=== PATIENT | male | born 1980 | race Two or more races ===

== ENCOUNTER 2017-01-24 23:29 | Emergency (ER) | payer MEDICAID, OTHER | END 2017-01-25 05:47 | disposition left against medical advice (07) | LOC: ER 23:29 | DX: M25.571 Pain in right ankle and joints of right foot (principal); Z53.21 Procedure and treatment not carried out due to patient leaving prior to being seen by health care provider | CPT/HCPCS: 73610 ==

== ENCOUNTER 2018-11-20 15:58 | Emergency (ER) | payer MEDICAID ==
[~2018-11-20] VITALS: Ht 175.3 cm; Wt 136.1 kg
[2018-11-20 17:14] LABS: Basophils # (auto) 0 uL; Basophils % (auto) 0.7 % (0.0-2.0); Chloride 109 mmol/L (98-107); Eosinophils # (auto) 0.2 uL; Eosinophils % (auto) 3.2 % (0.0-7.0); Hematocrit 43.2 % (41.0-53.0); Hemoglobin 14.4 g/dL (13.5-17.5); Lymphocytes # (auto) 2.1 uL; Lymphocytes % (auto) 30.1 % (10.0-50.0); Mean Corpuscular Hemoglobin 29.6 pg (28.0-32.0); Mean Corpuscular Hgb Conc. 33.4 g/dL (32.0-36.0); Mean Corpuscular Volume 88.6 fL (80.0-100.0); Monocytes # (auto) 0.7 uL; Monocytes % (auto) 9.7 % (0.0-12.0); Neutrophils # (auto) 3.8 uL; Neutrophils % (auto) 56.3 % (37.0-80.0); Platelet Count (auto) 302 10^3/uL (140-450); Potassium 3.7 mmol/L (3.5-5.1); Red Blood Cells 4.88 10^6/uL (4.5-5.90); Red Cell Distribution Width 13.9 % (11.8-14.3); Sodium 143 mmol/L (136-145); White Blood Cell 6.8 10^3/uL (4.4-10.8)
[2018-11-20 17:15] LABS: Urine Bacteria NONE SEEN /hpf (None Seen); Urine Blood Negative /uL (Negative); Urine Mucus FEW (None Seen); Urine Specific Gravity 1.031 (1.001-1.035); Urine WBC 1 /hpf (0 - 3)
[2018-11-20 17:20] LABS: Alcohol, Urine < 3.0 mg/dL (0-5); Amphetamine Screen, Urine NEGATIVE (NEGATIVE); Barbiturate Scree,Urine NEGATIVE (NEGATIVE); Benzodiazephine Screen, Urine NEGATIVE (NEGATIVE); Cannabinoid Screen, Urine NEGATIVE (NEGATIVE); Cocaine Screen, Urine NEGATIVE (NEGATIVE); Opiate Scree,Urine NEGATIVE (NEGATIVE); Phencyclidine Screen, Urine NEGATIVE (NEGATIVE)
[2018-11-20 17:21] LABS: Salicylate < 1.7 mg/dL (2.8-20.0)
[2018-11-20 17:22] LABS: Albumin 3.3 g/dL (3.4-5.0); Anion Gap 8 (5-15); Blood Alcohol < 3.0 mg/dL (0-5); Blood Urea Nitrogen 12 mg/dL (7-18); Calcium 8.8 mg/dL (8.5-10.1); Carbon Dioxide 26 mmol/L (21-32); Glucose 86 mg/dL (74-106)
[2018-11-20 17:27] LABS: Alanine Aminotransferase 97 U/L (16-61); Alkaline Phosphatase 58 U/L (45-117); Aspartate Aminotransferase 57 U/L (15-37); BUN/Creatinine Ratio 18.8; Bilirubin, Total 0.2 mg/dL (0.2-1.0); GFR African American 179 mL/min; GFR Non-African American 148 mL/min; Total Protein 7.4 g/dL (6.4-8.2)
[2018-11-20 17:29] LABS: Acetaminophen < 2.0 ug/mL (10-30)
[2018-11-20 22:14] LABS: Albumin 3.3 g/dL (3.4-5.0); Calcium 8.6 mg/dL (8.5-10.1); Potassium 3.4 mmol/L (3.5-5.1)
[2018-11-20 22:19] LABS: Bilirubin, Total 0.3 mg/dL (0.2-1.0)
[2018-11-24 15:30] VITALS: BP 117/78
== END 2018-11-24 20:19 | disposition home or self-care (01) ==
LOC: ER 16:09
DX: F32.9 Major depressive disorder, single episode, unspecified (principal); R45.851 Suicidal ideations
CPT/HCPCS: 36415; 80053; 80307; 80320; 80329; 81001; 85025

== ENCOUNTER → 2019-07-10 | Emergency (ER) | payer MEDICAID ==
[~2019-07-10] VITALS: Ht 172.7 cm; Wt 74.8 kg
[2019-07-10 06:15] VITALS: BP 118/87
== END | disposition home or self-care (01) ==
LOC: ER 01:52
DX: L02.416 Cutaneous abscess of left lower limb (principal)

== ENCOUNTER 2021-02-28 03:43 | Emergency (ER) | payer MEDICAID ==
[~2021-02-28] VITALS: Ht 175.3 cm; Wt 81.6 kg
[2021-02-28 05:41] VITALS: BP 127/82
== END 2021-02-28 09:06 | disposition home or self-care (01) ==
LOC: ER 03:43
DX: S60.562A Insect bite (nonvenomous) of left hand, initial encounter (principal); L02.512 Cutaneous abscess of left hand; W57.XXXA Bitten or stung by nonvenomous insect and other nonvenomous arthropods, initial encounter; Y93.89 Activity, other specified; Y92.89 Other specified places as the place of occurrence of the external cause; Y99.8 Other external cause status
CPT/HCPCS: 82962

== ENCOUNTER 2021-03-01 00:34 | Emergency (ER) | payer MEDICAID ==
[~2021-03-01] VITALS: Ht 175.3 cm; Wt 77.1 kg
[2021-03-01 01:09] VITALS: BP 133/84
== END 2021-03-01 04:21 | disposition left against medical advice (07) ==
LOC: ER 00:38
DX: L02.512 Cutaneous abscess of left hand (principal); Z53.21 Procedure and treatment not carried out due to patient leaving prior to being seen by health care provider

== ENCOUNTER 2021-10-10 19:05 | Emergency (ER) | payer MEDICAID ==
[~2021-10-10] VITALS: Ht 170.2 cm; Wt 81.6 kg
[2021-10-10] MEDS ORDERED: LACTATED RINGER'S 1,000 ML IV ONE (19:45)
[2021-10-10] MEDS ORDERED: FAMOTIDINE (10MG/ML) 2ML VL IV ONE (19:45)
[2021-10-10] MEDS ORDERED: ONDANSETRON HCL 4 MG/2 ML VIAL IV ONE (19:45)
[2021-10-10] MEDS ORDERED: LIDOCAINE VISCOUS 2% 15ML UD PO ONE (19:45)
[2021-10-10] MEDS ORDERED: ALUM & MAG HYDROX-SIMETH LIQ(MAALOX) 30 ML PO ONE (19:45)
[2021-10-10 20:06] LABS: Basophils # (auto) 0 10 ^3/uL (0-0.2); Basophils % (auto) 0.4 % (0.0-2.0); Eosinophils # (auto) 0 10 ^3/uL (0-0.8); Eosinophils % (auto) 0.2 % (0.0-7.0); Hematocrit 42.9 % (41.0-53.0); Hemoglobin 14.3 g/dL (13.5-17.5); Lymphocytes # (auto) 0.8 10 ^3/uL (0.4-5.4); Lymphocytes % (auto) 12.6 % (10.0-50.0); Mean Corpuscular Hemoglobin 28.7 pg (28.0-32.0); Mean Corpuscular Hgb Conc. 33.2 g/dL (32.0-36.0); Mean Corpuscular Volume 86.5 fL (80.0-100.0); Monocytes # (auto) 0.7 10 ^3/uL (0-1.3); Monocytes % (auto) 10.6 % (0.0-12.0); Neutrophils % (auto) 76.2 % (37.0-80.0); Red Blood Cells 4.96 10^6/uL (4.5-5.90); Red Cell Distribution Width 13.7 % (11.8-14.3); White Blood Cell 6.5 10^3/uL (4.4-10.8)
[2021-10-10 20:20] LABS: BUN/Creatinine Ratio 20.8; Calcium 8.4 mg/dL (8.5-10.1); Magnesium 2.2 mg/dL (1.6-2.6); Potassium 3.1 mmol/L (3.5-5.1)
[2021-10-10 20:23] LABS: Bilirubin, Total 0.4 mg/dL (0.2-1.0); Total Protein 7.2 g/dL (6.4-8.2)
[2021-10-10] MEDS ORDERED: POTASSIUM EFFERVESENT TAB 25 MEQ PO ONE (21:15)
[2021-10-11 04:10] LABS: Urine Bacteria NONE SEEN /hpf (None Seen); Urine Blood Negative /uL (Negative); Urine Budding Yeast FEW /hpf (None Seen); Urine Mucus FEW (None Seen); Urine Specific Gravity 1.035 (1.001-1.035); Urine WBC 96 /hpf (0 - 3)
[2021-10-11 04:20] VITALS: BP 129/90
== END 2021-10-11 04:33 | disposition home or self-care (01) ==
LOC: EDBD 19:05 → ER 19:06
DX: K52.9 Noninfective gastroenteritis and colitis, unspecified (principal); A05.9 Bacterial foodborne intoxication, unspecified; F17.210 Nicotine dependence, cigarettes, uncomplicated; Z59.00 Homelessness unspecified
CPT/HCPCS: 36415; 80053; 81001; 82962; 83605; 83690; 83735; 85025; 96361; 96374; 96375; 99284; J2405; J3490; J7030